=== PATIENT | male | born 1965 | race African-American/Black ===

== ENCOUNTER 2017-09-08 15:43 | Inpatient (IN) | payer OTHER ==
[2017-09-08 19:21] VITALS: BMI 22.8
--- NOTE | 2017-09-08 21:20 | HP ---
CIWA Score - CIWA Score Nausea/Vomitin-Mild Nausea/No Vomiting Muscle Tremors: 2 Anxiety: 2 Agitation: 2 Paroxysmal Sweats: 2 Orientation: 1-Uncertain about Date Tacttile Disturbances: 1-Very Mild Itch/Numbness Auditory Disturbances: 1-Very Mild Visual Disturbances: 1-Very Mild Sensitivity Headache: 1-Very Mild CIWA-Ar Total Score: 14 Admission ROS BHS - HPI Chief Complaint: WITHDRAWAL SYMPTOMS Allergies/Adverse Reactions: Allergies Allergy/AdvReac Type Severity Reaction Status Date / Time No Known Allergies Allergy Verified 09/08/17 21:17 History of Present Illness: 51 Y.O. MAN WITH AN EXTENSIVE HISTORY OF ALCOHOL DEPENDENCE IS HERE SEEKING HIS FIRST ADMISSION TO DETOX. Exam Limitations: No Limitations - Ebola screening Have you traveled outside of the country in the last 21 days: No Have you had contact with anyone from an Ebola affected area: No Have you been sick,other than usual withdrawal symptoms: No Do you have a fever: No - Review of Systems Constitutional: Chills EENT: reports: No Symptoms Reported Respiratory: reports: No Symptoms reported Cardiac: reports: No Symptoms Reported GI: reports: No Symptoms Reported : reports: No Symptoms Reported Musculoskeletal: reports: Joint Pain Integumentary: reports: No Symptoms Reported Neuro: reports: No Symptoms reported Endocrine: reports: No Symptoms Reported Hematology: reports: No Symptoms Reported Psychiatric: reports: Judgement Intact, Mood/Affect Appropiate Other Systems: Reviewed and Negative Patient History - Patient Medical History Hx Anemia: No Hx Asthma: No Hx Chronic Obstructive Pulmonary Disease (COPD): No Hx Cancer: No Hx Cardiac Disorders: No Hx Congestive Heart Failure: No Hx Hypertension: No Hx Hypercholesterolemia: Yes Hx Pacemaker: No HX Cerebrovascular Accident: No Hx Seizures: No Hx Dementia: No Hx Diabetes: No Hx Gastrointestinal Disorders: No Hx Liver Disease: No Hx Genitourinary Disorders: No Hx Sexually Transmitted Disorders: No Hx Renal Disease (ESRD): No Hx Thyroid Disease: No Hx Human Immunodeficiency Virus (HIV): Yes (Takes Genvoya ) Hx Hepatitis C: No Hx Depression: No Hx Suicide Attempt: No Hx Bipolar Disorder: No Hx Schizophrenia: No - Patient Surgical History Past Surgical History: No - PPD History Previous Implant?: Yes Documented Results: Negative w/o proof PPD to be Administered?: Yes - Reproductive History Patient is a Female of Child Bearing Age (11 -55 yrs old): No - Smoking Cessation Smoking history: Current every day smoker Aproximately how many cigarettes per day: 20 Initiated information on smoking cessation: Yes 'Breaking Loose' booklet given: 09/08/17 - Substance & Tx. History Hx Alcohol Use: Yes Hx Substance Use: No Substance Use Type: Alcohol Hx Substance Use Treatment: No (Never sought treatment ) - Substances Abused Alcohol Route: Oral Frequency: Daily Amount used: 1 PINT Age of first use: 10 Date of Last Use: 09/08/17 Family Disease History - Family Disease History Family Disease History: [place]: Father (), Mother ( ) Admission Physical Exam [facility] - Vital Signs Vital Signs: Vital Signs - 24 hr 09/08/17 19:19 Temperature 95.9 F L Pulse Rate 76 Respiratory 18 Rate Blood Pressure 152/94 - Physical General Appearance: Yes: Disheveled, Anxious HEENTM: Yes: Hearing grossly Normal, Normal ENT Inspection, Normocephalic Respiratory: Yes: Chest Non-Tender, Lungs Clear, Normal Breath Sounds, No Respiratory Distress, No Accessory Muscle Use Neck: Yes: Within Normal Limits Breast: Yes: Breast Exam Deferred Cardiology: Yes: Regular Rhythm, Regular Rate Abdominal: Yes: Normal Bowel Sounds, Non Tender Genitourinary: Yes: Other (NO COMPLAINTS REPORTED) Back: Yes: Normal Inspection Musculoskeletal: Yes: Joint Stiffness, Other (UNSTEADY GAIT) Extremities: Yes: Normal Inspection, Normal Range of Motion, Non-Tender Neurological: Yes: Alert, Normal Mood/Affect, Normal Response Integumentary: Yes: Normal Color, Dry, Warm Lymphatic: Yes: Within Normal Limits - Diagnostic (1) Alcohol dependence with uncomplicated withdrawal Current Visit: Yes Status: Chronic (2) HIV (human immunodeficiency virus infection) Current Visit: Yes Status: Chronic (3) Hyperlipidemia Current Visit: Yes Status: Chronic (4) Unsteady gait Current Visit: Yes Status: Chronic (5) Nicotine dependence Current Visit: Yes Status: Chronic Cleared for Admission [facility] - Detox or Rehab [facility] Level of Care: Medically Managed Detox Regimen/Protocol: Librium [facility] Breath Alcohol Content Breath Alcohol Content: 0 Urine Drug Screen - Results Drug Screen Negative: No Urine Drug Screen Results: CRYSTAL-Cocaine
[2017-09-08] MEDS ORDERED: MAGNESIUM HYDROX 2400MG/30ML ORAL SUSPENSION 30 ML CUP PO PRN (21:30)
[2017-09-08] MEDS ORDERED: MAGNESIUM CITRATE 300 ML BOTTLE PO PRN (21:30)
[2017-09-08] MEDS ORDERED: LOPERAMIDE HCL 2 MG CAPSULE PO PRN (21:30)
[2017-09-08] MEDS ORDERED: ACETAMINOPHEN 325 MG TABLET (FP) PO PRN (21:30)
[2017-09-08] MEDS ORDERED: MENTHOL/PHENOL 1 EACH UD MM PRN (21:30)
[2017-09-08] MEDS ORDERED: chlordiazePOXIDE HCL 25 MG CAPSULE PO PRN (21:30)
[2017-09-08] MEDS ORDERED: hydrOXYzine PAMOATE 50 MG CAPSULE (FP) PO PRN (21:30)
[2017-09-08] MEDS ORDERED: P-EPHED 60MG/TRIPROLIDI 2.5MG TABLET PO PRN (21:30)
[2017-09-08] MEDS ORDERED: IBUPROFEN 400 MG TABLET (FP) PO PRN (21:30)
[2017-09-08] MEDS ORDERED: guaiFENesin/D-METHORPHAN HB 10 ML UNIT-DOSE CUPS PO PRN (21:30)
[2017-09-08] MEDS ORDERED: MAG HYDROX/AL HYDROX/SIMETH 30 ML UNIT-DOSE CUP PO PRN (21:30)
[2017-09-08] MEDS ORDERED: NICOTINE POLACRILEX 2 MG GUM BC PRN (21:30)
[2017-09-08] MEDS ORDERED: MELATONIN 5 MG TABLETS PO PRN (22:00)
[2017-09-08] MEDS ORDERED: PATIENT'S OWN MEDICATION (NON-FORMULARY) (Pravastatin Sodium 40 MG) PO SCH (22:00)
[2017-09-08] MEDS: chlordiazePOXIDE HCL 25 MG CAPSULE PO SCH (23:04)
[2017-09-08] MEDS: THIAMINE HCL 100 MG TABLET (FP) PO SCH (23:36)
[2017-09-09 01:41] LABS: URINE APPEARANCE CLEAR; URINE BILIRUBIN NEGATIVE (<2.0 mg/dL); URINE COLOR LTYELLOW; URINE GLUCOSE (UA) NEGATIVE (NEGATIVE); URINE KETONE NEGATIVE (NEGATIVE); URINE LEUK ESTERASE NEGATIVE (NEGATIVE); URINE NITRITE NEGATIVE (NEGATIVE); URINE PROTEIN NEGATIVE (NEGATIVE); URINE UROBILINOGEN NEGATIVE mg/dL (0.2-1.0)
[2017-09-09] MEDS: chlordiazePOXIDE HCL 25 MG CAPSULE PO SCH ×4 (05:42→22:13)
[2017-09-09] MEDS: SULFAMETHOXAZOLE/TRIMETHOPRIM 800MG/160MG D.S. TABLET PO SCH (10:21)
[2017-09-09] MEDS: NICOTINE 21 MG/24 HOURS TOPICAL PATCH TD SCH (10:21)
[2017-09-09] MEDS: PRENATAL VITAMINS W/ FOLIC ACID TABLET (FP) PO SCH (10:21)
--- NOTE | 2017-09-09 10:35 | EKG ---
Test Reason : Blood Pressure : / mmHG Vent. Rate : 057 BPM Atrial Rate : 057 BPM P-R Int : 162 ms QRS Dur : 092 ms QT Int : 434 ms P-R-T Axes : 076 022 000 degrees QTc Int : 422 ms SINUS BRADYCARDIA POSSIBLE LEFT ATRIAL ENLARGEMENT LEFT VENTRICULAR HYPERTROPHY ST ELEVATION, CONSIDER EARLY REPOLARIZATION, PERICARDITIS, OR INJURY T WAVE ABNORMALITY, CONSIDER INFERIOR ISCHEMIA ABNORMAL ECG NO PREVIOUS ECGS AVAILABLE Confirmed by CEE MCDONNELL, KAL ([id number]) on 09/09/2017 10:34:56 AM Referred By: Confirmed By:KAL MIKE MD
[2017-09-09 11:19] LABS: HEMATOCRIT 40.3 % (35.4-49); HEMOGLOBIN 13.4 GM/dL (11.7-16.9); MCH 33.6 pg (25.7-33.7); MCHC 33.2 g/dl (32.0-35.9); MEAN CELL VOLUME 101.1 fl (80-96); MEAN PLT VOLUME 8.9 fl (7.5-11.1); PLATELET COUNT 155 K/MM3 (134-434); RBC 3.98 M/mm3 (4.00-5.60); RDW 15.2 % (11.9-15.9); WHITE BLOOD COUNT 2.7 K/mm3 (4.0-10.0)
[2017-09-09 11:29] LABS: CHLORIDE 102 mmol/L (98-107); POTASSIUM 4.5 mmol/L (3.5-5.1); SODIUM 136 mmol/L (136-145)
[2017-09-09 11:43] LABS: ALBUMIN 3.5 g/dl (3.4-5.0); ANION GAP 7 (8-16); BILIRUBIN,TOTAL 0.4 mg/dL (0.2-1.0); BLOOD UREA NITROGEN 10 mg/dL (7-18); CALCIUM 9.2 mg/dL (8.5-10.1); CO2 27 mmol/L (21-32); CREATININE 1.2 mg/dL (0.7-1.3); GLUCOSE,RANDOM 87 mg/dL (74-106); SGOT/AST 26 U/L (15-37); SGPT/ALT 31 U/L (12-78); TOT PROT 7.2 g/dl (6.4-8.2)
[2017-09-09 12:12] LABS: ALK PHOS 74 U/L (45-117)
[2017-09-09] MEDS: ELVITEG/COB/EMTRI/TENOF (GENVOYA) TABLET (NF) PO SCH (12:39)
--- NOTE | 2017-09-09 13:01 | PN ---
S CIWA - CIWA Score Nausea/Vomitin Muscle Tremors: 2 Anxiety: 2 Agitation: 2 Paroxysmal Sweats: 2 Orientation: 0-Oriented Tacttile Disturbances: 1-Very Mild Itch/Numbness Auditory Disturbances: 1-Very Mild Visual Disturbances: 1-Very Mild Sensitivity Headache: 1-Very Mild CIWA-Ar Total Score: 14 S Progress Note (SOAP) Subjective: Tremors, interrupted sleep and generalized pain Objective: 09/09/17 13:00 Vital Signs - 8 hr 09/09/17 09/09/17 06:00 10:00 Temperature 97.7 F 97.5 F L Pulse Rate 56 L 76 Respiratory 18 16 Rate Blood Pressure 134/85 108/58 Laboratory Last Values WBC 2.7 K/mm3 (4.0-10.0) L 09/09/17 08:00 RBC 3.98 M/mm3 (4.00-5.60) L 09/09/17 08:00 Hgb 13.4 GM/dL (11.7-16.9) 09/09/17 08:00 Hct 40.3 % (35.4-49) 09/09/17 08:00 MCV 101.1 fl (80-96) H 09/09/17 08:00 MCH 33.6 pg (25.7-33.7) 09/09/17 08:00 MCHC 33.2 g/dl (32.0-35.9) 09/09/17 08:00 RDW 15.2 % (11.9-15.9) 09/09/17 08:00 Plt Count 155 K/MM3 (134-434) 09/09/17 08:00 MPV 8.9 fl (7.5-11.1) 09/09/17 08:00 Sodium 136 mmol/L (136-145) 09/09/17 08:00 Potassium 4.5 mmol/L (3.5-5.1) 09/09/17 08:00 Chloride 102 mmol/L (98-107) 09/09/17 08:00 Carbon Dioxide 27 mmol/L (21-32) 09/09/17 08:00 Anion Gap 7 (8-16) L 09/09/17 08:00 BUN 10 mg/dL (7-18) 09/09/17 08:00 Creatinine 1.2 mg/dL (0.7-1.3) 09/09/17 08:00 Creat Clearance w eGFR > 60 (>60) 09/09/17 08:00 Random Glucose 87 mg/dL (74-106) 09/09/17 08:00 Calcium 9.2 mg/dL (8.5-10.1) 09/09/17 08:00 Total Bilirubin 0.4 mg/dL (0.2-1.0) 09/09/17 08:00 AST 26 U/L (15-37) 09/09/17 08:00 ALT 31 U/L (12-78) 09/09/17 08:00 Alkaline Phosphatase 74 U/L (45-117) 09/09/17 08:00 Total Protein 7.2 g/dl (6.4-8.2) 09/09/17 08:00 Albumin 3.5 g/dl (3.4-5.0) 09/09/17 08:00 Urine Color Ltyellow 09/08/17 23:47 Urine Appearance Clear 09/08/17 23:47 Urine pH 5.0 (5.0-8.0) 09/08/17 23:47 Ur Specific [place] 1.015 (1.001-1.035) 09/08/17 23:47 Urine Protein Negative (NEGATIVE) 09/08/17 23:47 Urine Glucose (UA) Negative (NEGATIVE) 09/08/17 23:47 Urine Ketones Negative (NEGATIVE) 09/08/17 23:47 Urine Blood Negative (NEGATIVE) 09/08/17 23:47 Urine Nitrite Negative (NEGATIVE) 09/08/17 23:47 Urine Bilirubin Negative (<2.0 mg/dL) 09/08/17 23:47 Urine Urobilinogen Negative mg/dL (0.2-1.0) 09/08/17 23:47 Ur Leukocyte Esterase Negative (NEGATIVE) 09/08/17 23:47 Labs noted Assessment: 09/09/17 13:01 Withdrawal sx Plan: Continue detox
[2017-09-09] MEDS: ATORVASTATIN CA 10 MG TABLET (FP) PO SCH (22:13)
[2017-09-09] MEDS: THIAMINE HCL 100 MG TABLET (FP) PO SCH (22:13)
[2017-09-10] MEDS: chlordiazePOXIDE HCL 25 MG CAPSULE PO SCH ×3 (05:20→18:03)
[2017-09-10] MEDS: ELVITEG/COB/EMTRI/TENOF (GENVOYA) TABLET (NF) PO SCH (10:19)
[2017-09-10] MEDS: PRENATAL VITAMINS W/ FOLIC ACID TABLET (FP) PO SCH (10:19)
[2017-09-10] MEDS: NICOTINE 21 MG/24 HOURS TOPICAL PATCH TD SCH (10:19)
[2017-09-10] MEDS: SULFAMETHOXAZOLE/TRIMETHOPRIM 800MG/160MG D.S. TABLET PO SCH (10:19)
--- NOTE | 2017-09-10 11:42 | PN ---
[facility] CIWA - CIWA Score Nausea/Vomitin-No Nausea/No Vomiting Muscle Tremors: 3 Anxiety: 3 Agitation: 3 Paroxysmal Sweats: 1-Minimal Palms Moist Orientation: 0-Oriented Tacttile Disturbances: 1-Very Mild Itch/Numbness Auditory Disturbances: 0-None Visual Disturbances: 0-None Headache: 0-None Present CIWA-Ar Total Score: 11 BHS Progress Note (SOAP) Subjective: sweat tremor anxiety difficulty sleeping restlessness Objective: 09/10/17 11:41 Vital Signs Temperature 95.9 F L 09/10/17 10:00 Pulse Rate 78 09/10/17 10:00 Respiratory Rate 18 09/10/17 10:00 Blood Pressure 105/72 09/10/17 10:00 O2 Sat by Pulse Oximetry (%) Laboratory Last Values WBC 2.7 K/mm3 (4.0-10.0) L 09/09/17 08:00 RBC 3.98 M/mm3 (4.00-5.60) L 09/09/17 08:00 Hgb 13.4 GM/dL (11.7-16.9) 09/09/17 08:00 Hct 40.3 % (35.4-49) 09/09/17 08:00 MCV 101.1 fl (80-96) H 09/09/17 08:00 MCH 33.6 pg (25.7-33.7) 09/09/17 08:00 MCHC 33.2 g/dl (32.0-35.9) 09/09/17 08:00 RDW 15.2 % (11.9-15.9) 09/09/17 08:00 Plt Count 155 K/MM3 (134-434) 09/09/17 08:00 MPV 8.9 fl (7.5-11.1) 09/09/17 08:00 Sodium 136 mmol/L (136-145) 09/09/17 08:00 Potassium 4.5 mmol/L (3.5-5.1) 09/09/17 08:00 Chloride 102 mmol/L (98-107) 09/09/17 08:00 Carbon Dioxide 27 mmol/L (21-32) 09/09/17 08:00 Anion Gap 7 (8-16) L 09/09/17 08:00 BUN 10 mg/dL (7-18) 09/09/17 08:00 Creatinine 1.2 mg/dL (0.7-1.3) 09/09/17 08:00 Creat Clearance w eGFR > 60 (>60) 09/09/17 08:00 Random Glucose 87 mg/dL (74-106) 09/09/17 08:00 Calcium 9.2 mg/dL (8.5-10.1) 09/09/17 08:00 Total Bilirubin 0.4 mg/dL (0.2-1.0) 09/09/17 08:00 AST 26 U/L (15-37) 09/09/17 08:00 ALT 31 U/L (12-78) 09/09/17 08:00 Alkaline Phosphatase 74 U/L (45-117) 09/09/17 08:00 Total Protein 7.2 g/dl (6.4-8.2) 09/09/17 08:00 Albumin 3.5 g/dl (3.4-5.0) 09/09/17 08:00 Urine Color Ltyellow 09/08/17 23:47 Urine Appearance Clear 09/08/17 23:47 Urine pH 5.0 (5.0-8.0) 09/08/17 23:47 Ur Specific [place] 1.015 (1.001-1.035) 09/08/17 23:47 Urine Protein Negative (NEGATIVE) 09/08/17 23:47 Urine Glucose (UA) Negative (NEGATIVE) 09/08/17 23:47 Urine Ketones Negative (NEGATIVE) 09/08/17 23:47 Urine Blood Negative (NEGATIVE) 09/08/17 23:47 Urine Nitrite Negative (NEGATIVE) 09/08/17 23:47 Urine Bilirubin Negative (<2.0 mg/dL) 09/08/17 23:47 Urine Urobilinogen Negative mg/dL (0.2-1.0) 09/08/17 23:47 Ur Leukocyte Esterase Negative (NEGATIVE) 09/08/17 23:47 RPR Titer Nonreactive (NONREACTIVE) 09/09/17 08:00 lab noted Assessment: 09/10/17 11:42 withdrawal sx Plan: continue detox
--- NOTE | 2017-09-10 16:28 | EKG ---
Test Reason : Blood Pressure : / mmHG Vent. Rate : 078 BPM Atrial Rate : 078 BPM P-R Int : 156 ms QRS Dur : 082 ms QT Int : 388 ms P-R-T Axes : 080 051 005 degrees QTc Int : 442 ms SINUS RHYTHM WITH OCCASIONAL PREMATURE VENTRICULAR COMPLEXES CANNOT RULE OUT ANTERIOR INFARCT , AGE UNDETERMINED ABNORMAL ECG WHEN COMPARED WITH ECG OF 09-SEP-2017 07:12, PREMATURE VENTRICULAR COMPLEXES ARE NOW PRESENT Confirmed by CEE MCDONNELL, KAL ([id number]) on 09/10/2017 4:27:18 PM Referred By: Confirmed By:KAL MIKE MD
[2017-09-10] MEDS: THIAMINE HCL 100 MG TABLET (FP) PO SCH (22:15)
[2017-09-10] MEDS: chlordiazePOXIDE 5 MG CAPSULE PO SCH (22:15)
[2017-09-10] MEDS: ATORVASTATIN CA 10 MG TABLET (FP) PO SCH (22:15)
[2017-09-11] MEDS: chlordiazePOXIDE 5 MG CAPSULE PO SCH ×2 (06:00→10:29)
--- NOTE | 2017-09-11 10:08 | PN ---
BHS Progress Note (SOAP) Subjective: feeling better, no tremor less sweat, well rested Objective: 09/11/17 10:07 Vital Signs Temperature 97.2 F L 09/11/17 06:20 Pulse Rate 69 09/11/17 06:20 Respiratory Rate 18 09/11/17 06:20 Blood Pressure 126/93 09/11/17 06:20 O2 Sat by Pulse Oximetry (%) Laboratory Last Values WBC 2.7 K/mm3 (4.0-10.0) L 09/09/17 08:00 RBC 3.98 M/mm3 (4.00-5.60) L 09/09/17 08:00 Hgb 13.4 GM/dL (11.7-16.9) 09/09/17 08:00 Hct 40.3 % (35.4-49) 09/09/17 08:00 MCV 101.1 fl (80-96) H 09/09/17 08:00 MCH 33.6 pg (25.7-33.7) 09/09/17 08:00 MCHC 33.2 g/dl (32.0-35.9) 09/09/17 08:00 RDW 15.2 % (11.9-15.9) 09/09/17 08:00 Plt Count 155 K/MM3 (134-434) 09/09/17 08:00 MPV 8.9 fl (7.5-11.1) 09/09/17 08:00 Sodium 136 mmol/L (136-145) 09/09/17 08:00 Potassium 4.5 mmol/L (3.5-5.1) 09/09/17 08:00 Chloride 102 mmol/L (98-107) 09/09/17 08:00 Carbon Dioxide 27 mmol/L (21-32) 09/09/17 08:00 Anion Gap 7 (8-16) L 09/09/17 08:00 BUN 10 mg/dL (7-18) 09/09/17 08:00 Creatinine 1.2 mg/dL (0.7-1.3) 09/09/17 08:00 Creat Clearance w eGFR > 60 (>60) 09/09/17 08:00 Random Glucose 87 mg/dL (74-106) 09/09/17 08:00 Calcium 9.2 mg/dL (8.5-10.1) 09/09/17 08:00 Total Bilirubin 0.4 mg/dL (0.2-1.0) 09/09/17 08:00 AST 26 U/L (15-37) 09/09/17 08:00 ALT 31 U/L (12-78) 09/09/17 08:00 Alkaline Phosphatase 74 U/L (45-117) 09/09/17 08:00 Total Protein 7.2 g/dl (6.4-8.2) 09/09/17 08:00 Albumin 3.5 g/dl (3.4-5.0) 09/09/17 08:00 Urine Color Ltyellow 09/08/17 23:47 Urine Appearance Clear 09/08/17 23:47 Urine pH 5.0 (5.0-8.0) 09/08/17 23:47 Ur Specific [place] 1.015 (1.001-1.035) 09/08/17 23:47 Urine Protein Negative (NEGATIVE) 09/08/17 23:47 Urine Glucose (UA) Negative (NEGATIVE) 09/08/17 23:47 Urine Ketones Negative (NEGATIVE) 09/08/17 23:47 Urine Blood Negative (NEGATIVE) 09/08/17 23:47 Urine Nitrite Negative (NEGATIVE) 09/08/17 23:47 Urine Bilirubin Negative (<2.0 mg/dL) 09/08/17 23:47 Urine Urobilinogen Negative mg/dL (0.2-1.0) 09/08/17 23:47 Ur Leukocyte Esterase Negative (NEGATIVE) 09/08/17 23:47 RPR Titer Nonreactive (NONREACTIVE) 09/09/17 08:00 lab noted Assessment: 09/11/17 10:07 mild withdrawal sx Plan: medically supervised detox
[2017-09-11 10:11] VITALS: BP 116/64; PULSE 80; TEMP 97.7
[2017-09-11] MEDS: NICOTINE 21 MG/24 HOURS TOPICAL PATCH TD SCH (10:27)
[2017-09-11] MEDS: SULFAMETHOXAZOLE/TRIMETHOPRIM 800MG/160MG D.S. TABLET PO SCH (10:29)
[2017-09-11] MEDS: PRENATAL VITAMINS W/ FOLIC ACID TABLET (FP) PO SCH (10:29)
[2017-09-11] MEDS: ELVITEG/COB/EMTRI/TENOF (GENVOYA) TABLET (NF) PO SCH (10:29)
--- NOTE | 2017-09-11 12:23 | DS ---
[facility] Detox Discharge Summary Admission Date: 09/08/17 Discharge Date: 09/11/17 - History Present History: Alcohol Dependence Additional Comments: 51 years old male admitted for alcohol detox patient reports feeling well no tremor no sweat tolerates food and fluid well denies alcohol withdrawal sx denies pain alert oriented x 3 no acute distress cardiac s1s2 lungs clear bilaterally abdomen soft non tenderness cane for ambulation patient wants to go to aftercare program begin 09/12/17 - Physical Exam Results Vital Signs: Vital Signs Temperature 97.7 F 09/11/17 10:11 Pulse Rate 80 09/11/17 10:11 Respiratory Rate 18 09/11/17 10:11 Blood Pressure 116/64 09/11/17 10:11 O2 Sat by Pulse Oximetry (%) Pertinent Admission Physical Exam Findings: withdrawal sx Vital Signs Temperature 97.7 F 09/11/17 10:11 Pulse Rate 80 09/11/17 10:11 Respiratory Rate 18 09/11/17 10:11 Blood Pressure 116/64 09/11/17 10:11 O2 Sat by Pulse Oximetry (%) Laboratory Last Values WBC 2.7 K/mm3 (4.0-10.0) L 09/09/17 08:00 RBC 3.98 M/mm3 (4.00-5.60) L 09/09/17 08:00 Hgb 13.4 GM/dL (11.7-16.9) 09/09/17 08:00 Hct 40.3 % (35.4-49) 09/09/17 08:00 MCV 101.1 fl (80-96) H 09/09/17 08:00 MCH 33.6 pg (25.7-33.7) 09/09/17 08:00 MCHC 33.2 g/dl (32.0-35.9) 09/09/17 08:00 RDW 15.2 % (11.9-15.9) 09/09/17 08:00 Plt Count 155 K/MM3 (134-434) 09/09/17 08:00 MPV 8.9 fl (7.5-11.1) 09/09/17 08:00 Sodium 136 mmol/L (136-145) 09/09/17 08:00 Potassium 4.5 mmol/L (3.5-5.1) 04/07/18 08:00 Chloride 102 mmol/L (98-107) 09/09/17 08:00 Carbon Dioxide 27 mmol/L (21-32) 09/09/17 08:00 Anion Gap 7 (8-16) L 09/09/17 08:00 BUN 10 mg/dL (7-18) 09/09/17 08:00 Creatinine 1.2 mg/dL (0.7-1.3) 09/09/17 08:00 Creat Clearance w eGFR > 60 (>60) 09/09/17 08:00 Random Glucose 87 mg/dL (74-106) 09/09/17 08:00 Calcium 9.2 mg/dL (8.5-10.1) 09/09/17 08:00 Total Bilirubin 0.4 mg/dL (0.2-1.0) 09/09/17 08:00 AST 26 U/L (15-37) 09/09/17 08:00 ALT 31 U/L (12-78) 09/09/17 08:00 Alkaline Phosphatase 74 U/L (45-117) 09/09/17 08:00 Total Protein 7.2 g/dl (6.4-8.2) 09/09/17 08:00 Albumin 3.5 g/dl (3.4-5.0) 09/09/17 08:00 Urine Color Ltyellow 09/08/17 23:47 Urine Appearance Clear 09/08/17 23:47 Urine pH 5.0 (5.0-8.0) 09/08/17 23:47 Ur Specific [place] 1.015 (1.001-1.035) 09/08/17 23:47 Urine Protein Negative (NEGATIVE) 09/08/17 23:47 Urine Glucose (UA) Negative (NEGATIVE) 09/08/17 23:47 Urine Ketones Negative (NEGATIVE) 09/08/17 23:47 Urine Blood Negative (NEGATIVE) 09/08/17 23:47 Urine Nitrite Negative (NEGATIVE) 09/08/17 23:47 Urine Bilirubin Negative (<2.0 mg/dL) 09/08/17 23:47 Urine Urobilinogen Negative mg/dL (0.2-1.0) 09/08/17 23:47 Ur Leukocyte Esterase Negative (NEGATIVE) 09/08/17 23:47 RPR Titer Nonreactive (NONREACTIVE) 09/09/17 08:00 lab noted - Treatment Hospital Course: Detox Protocol Followed, Detoxed Safely, Responded well, Discharged Condition Good, Rehab Referral Accepted Patient has Accepted a Rehab Referral to: as per counselor arrangecd - Medication Discharge Medications: Ambulatory Orders Elviteg/Cob/Emtri/Tenof Alafen [Genvoya Tablet] 1 each PO DAILY 09/08/17 Sulfamethoxazole/Trimethoprim [Bactrim DS -] 1 tab PO DAILY 09/08/17 Pravastatin Sodium [Pravachol -] 40 mg PO HS #30 tablet 09/11/17 - Diagnosis (1) Ambulates with cane Status: Chronic (2) Alcohol dependence with uncomplicated withdrawal Status: Acute (3) HIV (human immunodeficiency virus infection) Status: Chronic (4) Hyperlipidemia Status: Chronic Qualifiers: Hyperlipidemia type: pure hypercholesterolemia Qualified Code(s): E78.00 - Pure hypercholesterolemia, unspecified; E78.0 - Pure hypercholesterolemia (5) Nicotine dependence Status: Acute Qualifiers: Nicotine product type: cigarettes Substance use status: in withdrawal Qualified Code(s): F17.213 - Nicotine dependence, cigarettes, with withdrawal - AMA Did Patient Leave Against Medical Advice: No
[2017-09-11] MEDS ORDERED: chlordiazePOXIDE HCL 10 MG CAPSULE PO SCH (23:00)
--- NOTE | 2017-09-11 23:57 | EKG ---
Test Reason : Blood Pressure : / mmHG Vent. Rate : 060 BPM Atrial Rate : 060 BPM P-R Int : 170 ms QRS Dur : 084 ms QT Int : 436 ms P-R-T Axes : 068 007 -01 degrees QTc Int : 436 ms NORMAL SINUS RHYTHM T WAVE ABNORMALITY, CONSIDER INFERIOR ISCHEMIA ABNORMAL ECG WHEN COMPARED WITH ECG OF 08-SEP-2017 22:58, T WAVE VARIATION Confirmed by CHRISSIE FIELD MD ([id number]) on 09/11/2017 11:56:31 PM Referred By: Confirmed By:CHRISSIE FIELD MD
--- NOTE | 2017-09-12 10:43 | EKG ---
Test Reason : Blood Pressure : / mmHG Vent. Rate : 076 BPM Atrial Rate : 076 BPM P-R Int : 158 ms QRS Dur : 086 ms QT Int : 346 ms P-R-T Axes : 079 049 000 degrees QTc Int : 389 ms NORMAL SINUS RHYTHM POSSIBLE LEFT ATRIAL ENLARGEMENT T WAVE ABNORMALITY, CONSIDER INFERIOR ISCHEMIA ABNORMAL ECG WHEN COMPARED WITH ECG OF 10-SEP-2017 14:39, PREMATURE VENTRICULAR COMPLEXES ARE NO LONGER PRESENT QT HAS SHORTENED Confirmed by MD Isaias, Kan ([id number]) on 09/12/2017 10:43:10 AM Referred By: Confirmed By:Kan Esparza MD
== END 2017-09-11 12:35 | disposition home or self-care (01) | DRG 897 ==
LOC: YASAS 15:43 → Y6N 21:29
PROVIDERS: ADMIT Internal Medicine; ATTEND Internal Medicine
PROC: HZ2ZZZZ Detoxification Services for Substance Abuse Treatment (ICD-10-PCS; principal; 2017-09-08)
DX: F10.230 Alcohol dependence with withdrawal, uncomplicated (principal); F17.213 Nicotine dependence, cigarettes, with withdrawal; E78.00 Pure hypercholesterolemia, unspecified; Z21 Asymptomatic human immunodeficiency virus [HIV] infection status; R26.81 Unsteadiness on feet; Z99.89 Dependence on other enabling machines and devices; Z59.0 Homelessness
CPT/HCPCS: 36415; 80053; 81003; 85027; 86593; 93005; 93010